=== PATIENT | male | born 1955 | race Caucasian/White ===

== ENCOUNTER 2020-02-01 08:16 | Outpatient (REF) | payer MEDICAID, SELFPAY ==
--- NOTE | 2020-02-01 08:56 | MHC.AU.P13 ---
Hearing Aid Evaluation- Binaural Date of Visit: 02/01/20 Description of Hearing: Normal 250-1000 Hz, sloping to severe sensorineural hearing loss bilaterally Summary: Patient reports that he has difficulty hearing soft-spoken people. He has difficulty hearing in noise and difficulty hearing the television. He also experiences constant tinnitus. He reports that if he is preoccupied, he does not notice the tinnitus; however, when it is quiet and he is not busy, it is bothersome. 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 He was medically cleared for hearing aids by ENT, Dr. Sanchez. Discussed features of hearing aids, including tinnitus masker. Hearing Instrument Selection: Right Ear: Medical Collections Specialist: [employer] Model: Phreesiaeo M70-R Battery Size: Rechargeable Color: P3 Pediatric Allergist: 1M Type of Dome: Open Left Ear: Medical Collections Specialist: [employer] Model: Audeo M70-R Battery Size: Rechargeable Color: P3 Pediatric Allergist: 1M Type of Dome: Open Recommendations: Fitting will be scheduled when all materials have arrived. Diagnosis Code(s): Primary Diagnosis: H90.3 Bilateral Sensorineural Hearing Loss Secondary Diagnosis: H93.13 Tinnitus, Bilateral Services Performed: Hearing Aid Evaluation and Earmold: Hearing Aid Evaluation- Binaural Signature: Provider: Qi Mcmahon CCC-A
== END 2020-02-01 08:17 | disposition home or self-care (01) ==
LOC: HO.HAP 08:16
PROVIDERS: PCP Nurse Practitioner Family; Referring Provider Nurse Practitioner Family; Visit Provider Nurse Practitioner Family
DX: Z46.1 Encounter for fitting and adjustment of hearing aid (principal)
CPT/HCPCS: 92591

== ENCOUNTER 2020-02-15 08:14 | Outpatient (REF) | payer MEDICAID, SELFPAY ==
--- NOTE | 2020-02-15 09:25 | MHC.AU.P13 ---
Hearing Instrument Fitting- Adult- Binaural Date of Visit: 02/15/20 Hearing Instruments Dispensed: Right Ear: Conventional Machinist: [employer] Model: Audeo M70-R Serial Number: [id number] Warranty: 05/07/2023 Battery Size: Rechargeable Color: P3 Technology Administrator: 1M Type of Dome: Small Open Type of Wax Guard: CeruShield Left Ear: Conventional Machinist: [employer] Model: Audeo M70-R Serial Number: [id number] Warranty: 05/07/2023 Battery Size: Rechargeable Color: P3 Technology Administrator: 1M Type of Dome: Small Open Type of Wax Guard: Cerushield Summary of Fitting: Feedback estimation manager run. Verifit performed and levels adjusted. Target gain lowered to 90%, as patient perceived an echo at 100%. Patient was pleased with the sound of the instruments. He reported that his tinnitus was reduced. Discussed that if by the next follow-up his tinnitus still seems too bothersome, we could try a tinnitus masking program. Hearing aid care and use were discussed and practiced. Hearing aids were paired to the phone. Dania was downloaded and discussed. Recommendations: A hearing instrument follow-up was scheduled. Please call our clinic with any questions or concerns. Diagnosis Code(s): Primary Diagnosis: H90.3 Bilateral Sensorineural Hearing Loss Secondary Diagnosis: H93.13 Tinnitus, Bilateral Services Performed: Hearing Instrument Services: BTE-Binaural- Level 3 Hearing Aid Dispensing: Binaural Dispensing Fee Fitting (Other): Fitting/Orientation/Checking of Hearing Aid Conformity Evaluation, Real Ear, Functional Testing Electroacoustic Evaluation Signature: Provider: Qi Mcmahon, OCTAVIO-A
== END 2020-02-15 08:15 | disposition home or self-care (01) ==
LOC: HO.HAP 08:14
PROVIDERS: PCP Nurse Practitioner Family; Referring Provider Nurse Practitioner Family; Visit Provider Nurse Practitioner Family
DX: H90.3 Sensorineural hearing loss, bilateral (principal); H93.13 Tinnitus, bilateral; Z46.1 Encounter for fitting and adjustment of hearing aid
CPT/HCPCS: 92594; V5011; V5020; V5160; V5261